=== PATIENT | male | born 1985 | race Caucasian/White ===

== ENCOUNTER 2021-03-21 15:52 | Emergency (ER) | payer OTHER ==
[~2021-03-21] VITALS: Ht 175.3 cm; Wt 65.8 kg
[2021-03-21 16:53] VITALS: BP 138/91
== END 2021-03-21 16:54 | disposition home or self-care (01) ==
LOC: M.ERS 15:52
DX: M70.41 Prepatellar bursitis, right knee (principal); Y93.89 Activity, other specified